=== PATIENT | female | born 1970 | race Caucasian/White ===

== ENCOUNTER 2016-12-20 07:43 | Day surgery (SDC) | payer OTHER ==
[~2016-12-20] VITALS: Ht 149.9 cm; Wt 115.5 kg
[~2016-12-20 07:43] MED LIST: CITA10SO PO; LEVO125T3 PO; METO25 PO; PANT20 PO; PLAV75TA PO; QUIN10TA15 PO; [UNRECOGNIZED DRUG - OTHER] PO
[2016-12-20] MEDS ORDERED: IOHEXOL 350 MG/ML 100 ML BTL (for Cath Lab) OTHER ONE (07:44)
[2016-12-20] MEDS ORDERED: IOHEXOL 350 MG/ML 50 ML BTL (for Cath Lab) OTHER ONE (07:44)
[2016-12-20] MEDS ORDERED: NS 1000P @30 MLS/HR (KVO) IV SCH (08:15)
[2016-12-20 09:35] VITALS: BP 138/81; PULSE 72; RESP 20; TEMP 98.5; O2SAT 98
[2016-12-20] MEDS ORDERED: METO25TA3 PO (09:39)
[2016-12-20] MEDS ORDERED: PANT40TA3 PO (09:39)
[2016-12-20] MEDS ORDERED: QUIN20TA33 PO (09:39)
[2016-12-20] MEDS ORDERED: EZET1TAB8 PO (09:39)
[2016-12-20] MEDS ORDERED: BUSP1TAB PO (09:39)
[2016-12-20] MEDS ORDERED: ALLE10TA PO (09:39)
[2016-12-20] MEDS ORDERED: NITR0.4S SL (09:39)
[2016-12-20] MEDS ORDERED: CLOP75TA PO (09:39)
[2016-12-20] MEDS ORDERED: LEVO125T4 PO (09:39)
[2016-12-20] MEDS ORDERED: HYDR1CRE TOPICAL (09:39)
[2016-12-20] MEDS ORDERED: NORE5TAB PO (09:39)
[2016-12-20] MEDS ORDERED: HYDROCORTISONE SOD SUCCINATE 100 MG VIAL ONE (14:17)
[2016-12-20] MEDS ORDERED: diphenhydrAMINE HCL 50 MG/ML VIAL ONE (14:17)
[2016-12-20] MEDS ORDERED: diphenhydrAMINE HCL 50 MG/ML VIAL IV PUSH ONE (14:45)
[2016-12-20] MEDS ORDERED: HYDROCORTISONE SOD SUCCINATE 100 MG VIAL IV ONE (14:45)
[2016-12-20] MEDS ORDERED: HEPARIN-NS/PF INJ 1,000 ML ONE (15:05)
[2016-12-20] MEDS ORDERED: MIDAZOLAM HCL 2 MG/2 ML VIAL ONE ×2 (15:11→15:50)
[2016-12-20] MEDS ORDERED: HEPARIN SODIUM - IV 10,000 UNITS/10 ML VIAL ONE (15:17)
[2016-12-20] MEDS ORDERED: BIVALIRUDIN 250 MG VIAL ONE ×2 (15:30→15:57)
[2016-12-20] MEDS ORDERED: STERILE WATER FOR INJECTION 10 ML VIAL ONE (15:30)
[2016-12-20] MEDS ORDERED: CLOPIDOGREL 300 MG TAB ONE (16:04)
[2016-12-20] MEDS ORDERED: BIVALIRUDIN INJ 250 MG in SODIUM CHLORIDE 0.9% INJ 50 ML IV SCH (16:07)
[2016-12-20] MEDS ORDERED: NITROGLYCERIN 400 MCG/SPRAY 4.9 GM BOTTLE SL ONE (16:07)
[2016-12-20] MEDS ORDERED: ASPI81TA11 PO (16:13)
[2016-12-20] MEDS ORDERED: LIDOCAINE 2% JELLY 30 ML TUBE TOP PRN (16:15)
[2016-12-20] MEDS ORDERED: MISC INFORMATION XX ONE (16:15)
[2016-12-20] MEDS ORDERED: ONDANSETRON HCL 4 MG/2 ML VIAL IVP PRN (16:15)
[2016-12-20] MEDS ORDERED: MORPHINE SULFATE 4 MG/ML INJ IV PUSH PRN (16:15)
[2016-12-20] MEDS ORDERED: BACITRACIN OINT 0.9 GM PKT TOP ONE (16:15)
[2016-12-20] MEDS ORDERED: TEMAZEPAM 15 MG CAP PO PRN (16:15)
[2016-12-20] MEDS ORDERED: oxyCODONE/ACETAMINOPHEN 10 MG/325 MG TAB PO PRN (16:15)
[2016-12-20] MEDS ORDERED: oxyCODONE/ACETAMINOPHEN 5 MG/325 MG TAB PO PRN (16:15)
[2016-12-20] MEDS ORDERED: ACETAMINOPHEN 325 MG TAB PO PRN (16:15)
--- NOTE | 2016-12-20 16:16 | CATHPROC ---
Patient Name: NERISSA JORDAN Study #: [id number] Initial MD: Fitz Zavala Date of : 1970 Study Date: 12/20/2016 Cardiac Catheterization Report 12/20/2016 4:15:55 PM Financial #: [id number] 1 of 13 Patient Name: NERISSA JORDAN Study #: [id number] Initial MD: Fitz Zavala Date of : 1970 Study Date: 12/20/2016 Entire Case Report Patient Information Patient Name NERISSA JORDAN Date of 1970 Age 46 years Financial # [id number] Gender F AlternateID Lab Number 4 Room Number DC08 Height (in) 59.0 Height (cm) 149.9 BSA 2.03 Weight (lbs) 250.8 Weight (kg) 114.0 Patient Address/Phone Number Home Address [facility] Home Phone Number [address] [facility] [id number] Study Information Study Number Admission Scheduled Start Study Start [id number] Dec 20 2016 7:43AM 12/20/2016 Dec 20 2016 3:00PM [place] Service Cardiac Catheterization Admit Source Facility Department Other [facility] [employer] Physician and Clinical Staff Initial Fitz Sheth Weight Loss Counselor Maicol Ley,YARY Recorder Melecio Parker Recorder Charbel Vasquez,(R) Scrub Marcello Walker RCIS(BS) Procedures Performed Procedure Location (Site) Vessel Name Coronary Angiograms LCA Left Coronary Coronary Angiograms RCA Right Coronary Drug Eluting Inflatio RCA Mid Right Coronary Drug Eluting Inflatio RCA Prox Right Coronary L Heart Cath PTCA RCA Mid Right Coronary PTCA RCA Prox Right Coronary Wire insertion Radial (right) Radial Art. 12/20/2016 4:15:55 PM Financial #: [id number] 2 of 13 Patient Name: NERISSA JORDAN Study #: [id number] Initial MD: Fitz Zavala Date of : 1970 Study Date: 12/20/2016 Equipment Time Free Lance Model Description Size Mfg Part Number Used/Scraped TRANSDUCER, TRUWAVE [id number] 15:13 SHOOK MAYS * Used W/STOCKCOCK *[id number] 15:38 BOSTON [employer] BALLOON, 2.5 20MM EMERGE MR 2.5 20MM Used *[id number] 534-618T *0381923 [phone] *[id number] 534-623T *1007221 [id number] 15:13 MEDLINE INDUSTRIES PACK, CCL CUSTOM * Used *[id number] 15:13 [employer] INDUSTRIES SUPPORT, ARTERIAL ADULT 32716 *4499248 Used [id number] 15:13 MEDLINE PACER PEN, SKIN DUAL W/ RULER * Used *[id number] STENT, 2.5 30 RESOLUTE [id number] 15:49 MEDTRONIC 2.5 30 Used INTEGRITY RX *[id number] STENT, 3.0 18 RESOLUTE [id number] 15:56 MEDTRONIC 3.0 18 Used INTEGRITY RX *[id number] STENT, 3.0 38 RESOLUTE [id number] 16:00 MEDTRONIC 3.0 38 Used INTEGRITY RX *[id number] 15:47 [employer] MEDICAL 30 KALPESH INDEFLATOR Used *0194517 BAND, RADIAL COMPRESSION TR [id number] 16:11 [employer] MEDICAL 24CM Used SHORT 24 *[id number] SHEATH, FR6 RADIAL PRELUDE 15:13 [employer] FR 6 [id number] Used EASE 11CM [id number] 15:13 [employer] WIRE, EXCHANGE 260CM 3MMJ 260CM Used *1502526 15:13 NYCOMED OMNIPAQUE, 350 MG, 150ML 150ML [id number] Used [id number] 15:13 ABDALLA MEDICAL BLANKET,WARM AIR CCL * Used *1288727 WIRE, RUNTHROUGH NS FLOPPY 25-1013 15:34 TERUMO MEDICAL 300CM Used .014 300CM *[id number] Equipment Model, Serial, Lot Number and Expiration Data Description Model Number Serial Number Lot Number Expiration Date STENT, 2.5 30 RESOLUTE [id number] 02-26-2018 INTEGRITY RX STENT, 3.0 18 RESOLUTE [id number] 07-28-2018 INTEGRITY RX STENT, 3.0 38 RESOLUTE [id number] 10-05-2017 INTEGRITY RX Insurance Information Insurance Payor [facility] Insurance Third Alliance Party Third Alliance Party Number [facility]LY [facility] 12/20/2016 4:15:55 PM Financial #: [id number] 3 of 13 Patient Name: NERISSA JORDAN Study #: [id number] Initial MD: Fitz Zavala Date of : 1970 Study Date: 12/20/2016 History: Current Medications Medication Dosage/Unit Route Frequency Last Date/Time Taken PLAVIX Synthroid LOPRESSOR NTG SL Zieta History: Allergies Allergy Reaction prednisone latex Iodinated Contrast- Oral and IV Dye Wxsusfz-Cfl-Yrc Reductase Inhibitor shellfish derived History: Risk Factors Family History of Hypertension Dyslipidemia Previous CT Previous Heart Failure Premature CAD Yes Yes No No No Prior Valve Prior PCI Prior CABG Surgery No No No Cerebrovascular Peripheral Artery Chronic Lung On Dialysis Diabetes Disease Disease Disease No No Yes No No History: Symptoms/Diagnosis Selection Items Chest pain History: Stress Tests Stress or Imaging Studies Performed No History: Other Disease Selection Items CAD Gerd HTN History: Other Current Smoker Method Quit Packs a Day Years Used Pack Years No Cigarettes 25 Years Ago 1 5 5 12/20/2016 4:15:55 PM Financial #: [id number] 4 of 13 Patient Name: NERISSA JORDAN Study #: [id number] Initial MD: Fitz Zavala Date of : 1970 Study Date: 7 Labs Hgb (g/dl) Hct (%) RBC (MIL/MM3) WBC (l/cumm) Platelets (thousands) 11.60-17.00 35.00-51.00 4.00-5.90 4.00-11.00 150.00-450.00 16.4 48.9 5.4 9.2 296 Glucose (mg/dl) BUN (mg/dl) Creatinine (mg/dl) BUN:Creatinine (1:x) 74.00-106.00 7.00-18.00 0.50-1.30 10.00-20.00 71 16 0.8 20 Na (meq/l) K (meq/l) Cl (meq/l) CO2 (mmol/L) Ca (mg/dl) 136.00-145.00 3.50-5.10 98.00-107.00 21.00-32.00 8.50-10.10 140 4.4 104 19 8.7 PT (sec) INR (PTT:PT) 9.80-11.60 0.90-1.10 9.6 0.9 CPK-MB (ng/ML) 0.50-3.60 Not Drawn Medication Medication Total Dose (Bolus/Oral) Medication Total Dosage/Unit 1% XYLOCAINE 5 mL ANGIOMAX BOLUS 17 mL NTG (IC) 200 mcg VERSED 1 mg Medications (Bolus/Oral) Medication Time Given Dosage/Unit Administered By Reason VERSED 12/20/2016 3:20:07 PM 1 mg Maicol Ley Patient arrived on 1 mg VERSED given by Maicol Ley RN in Left Antecubital via Peripheral IV. 1% XYLOCAINE 12/20/2016 3:20:19 PM 5 mL Fitz Zavala Patient arrived on 5 mL 1% XYLOCAINE given by Fitz Zavala in Right Wrist via Subcutaneous. NTG (IC) 12/20/2016 3:21:22 PM 200 mcg Fitz Zavala Patient arrived on 200 mcg NTG (IC) given by Fitz Zavala in Right Wrist via Radial. ANGIOMAX BOLUS 12/20/2016 3:34:46 PM 17 mL Maicol Ley 17 mL ANGIOMAX BOLUS given in lab by Maicol Ley RN in Left Antecubital via Peripheral IV. 12/20/2016 4:15:55 PM Financial #: [id number] 5 of 13 Patient Name: NERISSA JORDAN Study #: [id number] Initial MD: Fitz Zavala Date of : 1970 Study Date: 017 Medication (Drip) Medication Time Given Dosage/Unit Concentration/Unit Diluent (ml) Solutio n IV Solutions 12/20/2016 3:03:35 PM 50 mL (IV) 500 NaCl .9 Patient arrived on IV Solutions in Left Antecubital via Peripheral IV. Pump/Drip Flow using NaCl .9. 12/20/2016 4:15:55 PM Financial #: [id number] 6 of 13 Patient Name: NERISSA JORDAN Study #: [id number] Initial MD: Fitz Zavala Date of : 1970 Study Date: 12/20/2016 Initial Case Assessment Cardiovascular HR Rhythm NIBP Chest Pain 93 SR 151/89 0 Edema Present Skin color Skin None Normal Warm Dry Circulatory - Right Pulses Dorsalis Pedis Femoral Radial 2 2 2 Scale (0,1,2,3,4,d) Scale (0,1,2,3,4,d) Neurological State Oriented to time-place- Alert Moves all extremities person Respiration - General Respiration Rate SpO2 (%) O2 (lpm) (B/min) 24 99 0 Final Case Assessment Cardiovascular HR Rhythm NIBP Chest Pain 80 SR 143/81 5 Edema Present Skin color Skin None Normal Warm Dry Circulatory - Right Pulses Dorsalis Pedis Femoral Radial 2 2 2 Scale (0,1,2,3,4,d) Scale (0,1,2,3,4,d) Neurological State Oriented to time-place- Alert Moves all extremities person Respiration - General Respiration Rate SpO2 (%) O2 (lpm) (B/min) 29 96 0 12/20/2016 4:15:55 PM Financial #: [id number] Patient Name: NERISSA JORDAN Study #: [id number] Initial MD: Fitz Zavala Date of : 1970 Study Date: 12/20/2016 Vitals Summary Pain Time HR NIBP SpO2 Resp Temp EtCO2 Apnea Marissa Flores Comment Level 15:11:10 93 151/89 98.0 30 10 0 2 15:13:09 99 153/86 100.0 32 10 0 2 15:15:12 92 149/78 98.0 30 10 0 2 15:17:11 84 150/82 95.0 30 10 0 2 15:19:11 93 153/82 95.0 32 10 0 2 15:21:12 93 150/85 95.0 31 10 0 2 15:23:11 102 144/90 92.0 32 10 0 2 15:25:10 100 127/79 92.0 21 10 0 2 15:27:09 98 131/74 90.0 23 10 0 2 15:29:09 98 139/71 92.0 33 10 0 2 15:31:10 96 130/75 92.0 28 10 0 2 15:33:09 104 132/78 91.0 28 10 0 2 15:34:10 92 164/80 96.0 29 10 0 2 15:39:12 88 145/79 94.0 26 10 0 2 15:44:09 89 140/86 95.0 26 10 0 2 15:49:46 86 162/88 96.0 31 10 0 2 15:54:15 72 159/87 93.0 31 10 0 2 15:59:14 88 153/88 93.0 32 10 0 2 16:04:15 86 143/81 96.0 30 10 0 2 16:09:10 83 134/68 95.0 31 10 0 2 12/20/2016 4:15:55 PM Financial #: [id number] Patient Name: NERISSA JORDAN Study #: [id number] Initial MD: Fitz Zavala Date of : 1970 Study Date: 12/20/2016 Marissa Score Summary Time Activity Resp Circ LOC Color Total Score 15:11:10 2 2 2 2 2 10 15:13:09 2 2 2 2 2 10 15:15:12 2 2 2 2 2 10 15:17:11 2 2 2 2 2 10 15:19:11 2 2 2 2 2 10 15:21:12 2 2 2 2 2 10 15:23:11 2 2 2 2 2 10 15:25:10 2 2 2 2 2 10 15:27:09 2 2 2 2 2 10 15:29:09 2 2 2 2 2 10 15:31:10 2 2 2 2 2 10 15:33:09 2 2 2 2 2 10 15:34:10 2 2 2 2 2 10 15:39:12 2 2 2 2 2 10 15:44:09 2 2 2 2 2 10 15:49:46 2 2 2 2 2 10 15:54:15 2 2 2 2 2 10 15:59:14 2 2 2 2 2 10 16:04:15 2 2 2 2 2 10 16:09:10 2 2 2 2 2 10 Marissa Score Definition Table Activity - 0 Activity - 1 Activity - 2 No Movement to Command Weak Hand Grasp Lift Head, Good Hand Grasp Respiration - 0 Respiration - 1 Respiration - 2 Apneic or Obstructed Shallow Breath, Airway Adjunct Deep Breath, Cough Freely Circulation - 0 Circulation - 1 Circulation - 2 B/P > 50% Admission B/P B/P > 20-50% Admission B/P B/P Stable X3 Level of Consciousness - 0 Level of Consciousness - 1 Level of Consciousness - 2 Not Responding Arousable On Calling Awake and Aware Color - 0 Color- 1 Color - 2 Cyanotic Lips, Nailbed, Skin Pale, Dusky [place] Or Normal Chronological Log Time Study Chronological Log 14:59:54 Patient arrived via Bed. 12/20/2016 4:15:55 PM Financial #: [id number] Patient Name: NERISSA JORDAN Study #: [id number] Initial MD: Fitz Zavala Date of : 1970 Study Date: 12/20/2016 14:59:56 Patient Name, D.O.B, / Armband Verified By R.N. 15:01:04 Pre-op and post- op instructions given; patient acknowledges understanding of instructions. 15:01:26 Allens test performed on the right radial and ulnar artery. 15:02:10 Presedation assessment performed by Concrete [employer]sman RN. 15:02:22 Patient has been NPO for More than 6Hrs. 15:02:26 Skin Breakdown- NONE 15:02:32 Patient Warmer Placed on the Table. 15:02:33 Flores Prominences Protected 15:02:35 A # 20 IV was noted in the Antecubital (left). Grade = PATENT 15:03:35 Patient arrived on IV Solutions in Left Antecubital via Peripheral IV. Pump/Drip Flow using NaCl .9. 15:07:27 MD arrived. Vitals capture started with the following parameters, Patient=Adult, Interval=5 min, Initial Pr ldivqx=130 mmHg, 15:08:08 Deflation Rate=5 mmHg, Cuff placed on Right Arm Assessment: Initial Case, HR=93 BPM, Rhythm=SR, GIXQ=670/89 mmhg, Chest Pain=0, Edema=None, Col or=Normal, Skin = Warm, Dry 15:08:40 Right Pulses: Jorge Ped=2, Femoral=2, Radial=2 Neurological: State=Alert, Ox3, [place] Respiration: Resp=24 B/min, SpO2=99 %, O2=0 lpm 15:09:08 Reference ECG taken Vitals capture started with the following parameters, Patient=Adult, Interval=5min, Initial Pre zqhjb=350 mmHg, 15:10:33 Deflation Rate=5 mmHg, Cuff placed on Right Arm 15:11:10 HR=93 bpm, WMRQ=743/89 mmhg, SpO2=98.0 %, Resp=30 B/min, Pain=0, Marissa=10, Flores=2 15:13:09 HR=99 bpm, BAWH=425/86 mmhg, ZsE6=164.0 %, Resp=32 B/min, Pain=0, Marissa=10, Flores=2 15:15:12 HR=92 bpm, TJMS=517/78 mmhg, SpO2=98.0 %, Resp=30 B/min, Pain=0, Marissa=10, Flores=2 15:15:55 Pressure channel 1 zeroed. 15:17:11 HR=84 bpm, GAGL=431/82 mmhg, SpO2=95.0 %, Resp=30 B/min, Pain=0, Marissa=10, Flores=2 15:19:11 HR=93 bpm, DLOQ=473/82 mmhg, SpO2=95.0 %, Resp=32 B/min, Pain=0, Marissa=10, Flores=2 Time Out. Correct patient, correct procedure,correct physician, power injector not loaded with contrast with surgical 15:19:11 team present. Time Out Concurred by MD, individual staff in procedure 15:20:05 Case Start 15:20:07 Patient arrived on 1 mg VERSED given by Maicol Ley, RN in Left Antecubital via Periphera l IV. 15:20:19 Patient arrived on 5 mL 1% XYLOCAINE given by Fitz Zavala in Right Wrist via Subcutaneou s. 15:20:42 Access site was Radial Artery. A SHEATH, FR6 RADIAL PRELUDE EASE 11CM FR 6 was advanced into the Radial (right) using the Perc utaneous 15:21:00 technique. 15:21:12 HR=93 bpm, ACQX=828/85 mmhg, SpO2=95.0 %, Resp=31 B/min, Pain=0, Marissa=10, Flores=2 15:21:22 Patient arrived on 200 mcg NTG (IC) given by Fitz Zavala in Right Wrist via Radial. A JR 5.0 INFINITI CATHETER FR 6 was advanced over a wire. OMNIPAQUE, 350 MG, 150ML 150ML was us ed for 15:23:11 injections. 15:23:11 VR=703 bpm, KLAO=994/90 mmhg, SpO2=92.0 %, Resp=32 B/min, Pain=0, Marissa=10, Flores=2 Recorded Pressure: LV, HR=98, Condition=Condition 1 15:24:33 (Left Ventricle) LV 147/-1/3 12/20/2016 4:15:55 PM Financial #: [id number] Patient Name: NERISSA JORDAN Study #: [id number] Initial MD: Fitz Zavala Date of : 1970 Study Date: 12/20/2016 Recorded Pressure: LV, Ao, II=198, Condition=Condition 1 15:24:39 (Left Ventricle) LV 148/-1/2, (Aorta) Ao 144/89/113 Recorded Pressure: Ao, HR=95, Condition=Condition 1 15:25:06 (Aorta) Ao 137/92/112 15:25:10 HK=914 bpm, HUMG=960/79 mmhg, SpO2=92.0 %, Resp=21 B/min, Pain=0, Marissa=10, Flores=2 15:25:20 The RCA was injected and visualized at various angles. OMNIPAQUE, 350 MG, 150ML 150ML used . After removing the current catheter a JL 3.5 INFINITI CATHETER FR 6 was advanced over a WIRE, E XCHANGE 260CM 15:25:39 3MMJ 260CM. 15:27:09 HR=98 bpm, NJDM=945/74 mmhg, SpO2=90.0 %, Resp=23 B/min, Pain=0, Marissa=10, Flores=2 15:29:05 The LCA was injected and visualized at various angles. OMNIPAQUE, 350 MG, 150ML 150ML used . 15:29:09 HR=98 bpm, YHOM=231/71 mmhg, SpO2=92.0 %, Resp=33 B/min, Pain=0, Marissa=10, Flores=2 15:31:10 HR=96 bpm, ZXKS=787/75 mmhg, SpO2=92.0 %, Resp=28 B/min, Pain=0, Marissa=10, Flores=2 After removing the current catheter a JR 5.0 GUIDE CATHETER FR 6 was advanced over a WIRE, EXCH SAILAJA 260CM 15:32:27 3MMJ 260CM. 15:33:09 SS=661 bpm, BCND=294/78 mmhg, SpO2=91.0 %, Resp=28 B/min, Pain=0, Marissa=10, Flores=2 15:33:23 Vitals capture stopped. Vitals capture started with the following parameters, Patient=Adult, Interval=5 min, Initial Pr plmder=293 mmHg, 15:33:32 Deflation Rate=5 mmHg, Cuff placed on Right Arm 15:34:10 HR=92 bpm, JFJK=481/80 mmhg, SpO2=96.0 %, Resp=29 B/min, Pain=0, Marissa=10, Flores=2 15:34:15 A WIRE, RUNTHROUGH NS FLOPPY .014 300CM 300CM was inserted via Radial (right). 15:34:46 17 mL ANGIOMAX BOLUS given in lab by Maicol Ley, RN in Left Antecubital via Peripheral I V. 15:39:12 HR=88 bpm, LZCA=809/79 mmhg, SpO2=94.0 %, Resp=26 B/min, Pain=0, Marissa=10, Flores=2 15:44:09 HR=89 bpm, OHDB=285/86 mmhg, SpO2=95.0 %, Resp=26 B/min, Pain=0, Marissa=10, Flores=2 15:44:25 Interventional wire has crossed the lesion A BALLOON, 2.5 20MM EMERGE MR 2.5 20MM was inserted over WIRE, RUNTHROUGH NS FLOPPY .014 300CM 300CM 15:45:43 via the RCA Mid. A BALLOON, 2.5 20MM EMERGE MR 2.5 20MM over a WIRE, RUNTHROUGH NS FLOPPY .014 300CM 300CM in th e RCA 15:46:27 Mid was inflated using a 30 KALPESH INDEFLATOR at 10 kalpesh for 15 sec. A BALLOON, 2.5 20MM EMERGE MR 2.5 20MM over a WIRE, RUNTHROUGH NS FLOPPY .014 300CM 300CM in th e RCA 15:46:54 Prox was inflated using a 30 KALPESH INDEFLATOR at 10 kalpesh for 15 sec. A BALLOON, 2.5 20MM EMERGE MR 2.5 20MM over a WIRE, RUNTHROUGH NS FLOPPY .014 300CM 300CM in th e RCA 15:47:13 Prox was inflated using a 30 KALPESH INDEFLATOR at 6 kalpesh for 10 sec. 15:48:46 Balloon Removed. 15:49:46 HR=86 bpm, WUUZ=279/88 mmhg, SpO2=96.0 %, Resp=31 B/min, Pain=0, Marissa=10, Flores=2 A STENT, 2.5 30 RESOLUTE INTEGRITY RX 2.5 30 was deployed using a 30 KALPESH INDEFLATOR at 16 atmos pheres for 15:49:56 10 seconds in the RCA Mid. A STENT, 2.5 30 RESOLUTE INTEGRITY RX 2.5 30 was advanced through a JR 5.0 GUIDE CATHETER FR 6 over a WIRE, 15:49:58 RUNTHROUGH NS FLOPPY .014 300CM 300CM. 15:50:47 Delivery device removed A STENT, 3.0 38 RESOLUTE INTEGRITY RX 3.0 38 was advanced through a JR 5.0 GUIDE CATHETER FR 6 over a WIRE, 15:52:03 RUNTHROUGH NS FLOPPY .014 300CM 300CM. A STENT, 3.0 38 RESOLUTE INTEGRITY RX 3.0 38 was deployed using a 30 KALPESH INDEFLATOR at 16 atmos pheres for 15:52:58 10 seconds in the RCA Prox. 15:53:37 Delivery device removed 15:54:15 HR=72 bpm, AIEG=222/87 mmhg, SpO2=93.0 %, Resp=31 B/min, Pain=0, Marissa=10, Flores=2 12/20/2016 4:15:55 PM Financial #: [id number] Patient Name: NERISSA JORDAN Study #: [id number] Initial MD: Fitz Zavala Date of : 1970 Study Date: 12/20/2016 A STENT, 3.0 18 RESOLUTE INTEGRITY RX 3.0 18 was advanced through a JR 5.0 GUIDE CATHETER FR 6 over a WIRE, 15:55:43 RUNTHROUGH NS FLOPPY .014 300CM 300CM. A STENT, 3.0 18 RESOLUTE INTEGRITY RX 3.0 18 was deployed using a 30 KALPESH INDEFLATOR at 16 atmos pheres for 15:58:11 10 seconds in the RCA Prox. 15:58:28 Delivery device removed 15:59:14 HR=88 bpm, ESVF=477/88 mmhg, SpO2=93.0 %, Resp=32 B/min, Pain=0, Marissa=10, Flores=2 16:01:04 The RCA was injected and visualized at various angles. OMNIPAQUE, 350 MG, 150ML 150ML used . 16:01:18 Wire removed 16:01:26 A WIRE, EXCHANGE 260CM 3MMJ 260CM was inserted via Radial (right). 16:01:38 Catheter was removed 16:01:40 Wire removed 16:01:46 Case End 16:03:49 No case complications noted. 16:03:54 Cine recording checked. Assessment: Final Case, HR=80 BPM, Rhythm=SR, EICU=886/81 mmhg, Chest Pain=5, Edema=None, Color =Normal, Skin = Warm, Dry 16:04:02 Right Pulses: Jorge Ped=2, Femoral=2, Radial=2 Neurological: State=Alert, Ox3, [place] Respiration: Resp=29 B/min, SpO2=96 %, O2=0 lpm 16:04:15 HR=86 bpm, OZGO=945/81 mmhg, SpO2=96.0 %, Resp=30 B/min, Pain=0, Marissa=10, Flores=2 Radial Compression Device Used. 16 mLs of air placed in BAND, RADIAL COMPRESSION TR SHORT 24 24 CM. Affected 16:05:16 hand 94 % O2 saturation. 16:08:39 Sterile dressing applied to site 16:08:49 Holding Area notified of successful intervention. 16:09:10 HR=83 bpm, NDKE=792/68 mmhg, SpO2=95.0 %, Resp=31 B/min, Pain=0, Marissa=10, Flores=2 16:09:18 Report called to floor. 16:10:00 A Left Heart Cath was performed. 16:11:41 Vitals capture stopped. 16:15:17 Patient moved to stretcher Recorded Pressures: Condition 1 Time Chamber Pressure Manual Override (*) 15:24:33 LV 147/-1/3 s/bd/ed 15:24:39 LV 148/-1/2 s/bd/ed 15:24:39 Ao 144/89/113 s/d/m 15:25:06 Ao 137/92/112 s/d/m 12/20/2016 4:15:55 PM Financial #: [id number] Patient Name: NERISSA JORDAN Study #: [id number] Initial MD: Fitz Zavala Date of : 1970 Study Date: 12/20/2016 End Study - Contrast Media Used In Study Contrast Total Opened (mL) Total Used (mL) Total Wasted (mL) Omnipaque 150 120 30 End Study - Maximum Contrast Load Max Contrast Load (mL) 712.5 End Study - Radiation Exposure Fluoro Time (minutes) 12.4 End Study - Patient Disposition Complications Transferred To Interventional Outcome No Telemetry Bed successful 12/20/2016 4:15:55 PM Financial #: [id number]
[2016-12-20] MEDS ORDERED: BRIL90TA PO (16:24)
[2016-12-20] MEDS ORDERED: ASPIRIN 81 MG CHEW TAB ONE (16:31)
[2016-12-20] MEDS ORDERED: ASPIRIN 81 MG CHEW TAB PO ONE (16:45)
[2016-12-20] MEDS ORDERED: PILL SPLITTER OTHER PRN (18:30)
[2016-12-20 19:00] VITALS: PULSE 100
[2016-12-20 20:00] VITALS: BP 154/89; PULSE 101; PULSE 102; RESP 16; TEMP 98.8; O2SAT 95
[2016-12-20] MEDS: busPIRone HCL 5 MG TAB PO SCH (20:16)
[2016-12-20] MEDS: METOPROLOL TARTRATE 25 MG TAB PO SCH (20:17)
[2016-12-20] MEDS: HYDROCORTISONE 1% CREAM 30 GM TOPICAL SCH (20:17)
[2016-12-20] MEDS: LISINOPRIL 20 MG TAB PO SCH (20:17)
[2016-12-20] MEDS: TICAGRELOR 90 MG TAB PO SCH (20:18)
--- NOTE | 2016-12-20 20:34 | MA ---
cc: CAMILLE BARAKAT DATE 12/20/2016 INDICATION Unstable angina. PROCEDURES PERFORMED 1. Fluoroscopy with interpretation. 2. Left heart catheterization. 3. Coronary angiography. 4. Percutaneous intervention with drug-eluting stents to the right coronary artery. METHOD Risks, benefits and alternatives were discussed with the patient. The patient understood and consented to the procedure. PROCEDURE DETAILS The patient was brought to the catheterization lab and placed on the catheterization table. Right wrist was prepped and draped in sterile fashion. Right wrist was anesthetized with 2% lidocaine. Right radial artery was cannulated and a 6-Moldovan 7 cm sheath was placed without difficulty. INTRAVENTRICULAR HEMODYNAMICS Left ventricular hemodynamics 148/1 mmHg. CORONARY ANGIOGRAPHY 1. Left main coronary has minor luminal irregularities. 2. Left anterior descending coronary has mild luminal irregularities. 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 The midsegment has what looks like two stents. In between the two stents there is 30% stenosis. Remainder of the left anterior descending coronary has mild luminal irregularities. 3. Circumflex gives rise to an obtuse marginal branch. Circumflex has 30% stenosis. 4. The right coronary is a dominant vessel giving rise to posterior descending branch. The mid-right coronary has an 80% stenosis. The distal segment has a 99% stenosis rise to a moderate size posterolateral and posterior descending branches. PERCUTANEOUS INTERVENTION Angiomax was administered throughout the entire procedure to maintain appropriate anticoagulation. The right coronary was selectively engaged with a 6-Moldovan JR-5 guide catheter. A 0.014 inch 180 cm Terumo run-through wire was navigated down the distal posterior descending branch without difficulty. 2.5 x 20 mm RX Euphora balloon was advanced down to the distal right coronary artery and deployed, had a single inflation to 12 atmospheres. The same balloon was pulled back to the mid segment and deployed to 12 atmospheres. Repeat angiography now showed still FEDERICO III flow, but there was a clear dissection, non-flow dissection flap leading from the midsegment all the way back to the proximal right coronary artery. A 2.5 x 30 mm RX Resolute drug-eluting stent was advanced down to the distal right coronary artery and deployed. A 3.0 x 38 mm RX Resolute drug-eluting stent was then advanced down to the mid-right coronary artery and deployed, and a 3.0 x 18 mm RX Resolute drug-eluting stent was advanced to the proximal right coronary artery and deployed covering the entire area dissection appropriately. There was no evidence of perforation. Repeat angiography showed FEDERICO III flow. No residual dissection. The patient tolerated the procedure well with out any periprocedural complications. removed. guide catheter removed. Hemoband applied. CONCLUSION 1. Severe right coronary artery disease. 2. Successful percutaneous intervention with drug-eluting stents to the right coronary artery. 3. Normal left-sided filling pressures. PLAN The patient will be monitored closely for any post procedural complications including arrhythmia and/or bleeding. She will be continued on Plavix, beta sheyla. She has an allergy to statins. We will initiate aspirin 81 mg a day. Anticipate possible discharge tomorrow. MD BERNADINE Valenzuela/KK /4:14 PM /8:19 PM
[2016-12-20 21:00] VITALS: PULSE 94
[2016-12-20 22:00] VITALS: PULSE 92
[2016-12-20 23:00] VITALS: BP 117/63; PULSE 76; PULSE 81; RESP 16; TEMP 98.2; O2SAT 96
[2016-12-21] VITALS (12 sets, daily range): BP systolic 110–114; BP diastolic 60–72; PULSE 54–88; RESP 16; TEMP 97.6–98.5; O2SAT 96–97
[2016-12-21] MEDS ORDERED: LEVOTHYROXINE SODIUM 125 MCG TAB PO SCH (06:00)
[2016-12-21 07:06] LABS: AUTOMATED NEUTROPHIL # 8.9 TH/MM3 (1.8-7.7); BASOPHIL # 0.1 TH/MM3 (0-0.2); BASOPHIL % 0.4 % (0.0-2.0); EOSINOPHIL # 0.1 TH/MM3 (0-0.4); EOSINOPHIL % 0.4 % (0.0-4.0); HEMATOCRIT 46.9 % (35.0-46.0); HEMO FLAGS DIFF FINAL; LYMPH % 20.8 % (9.0-44.0); LYMPHOCYTE # 2.7 TH/MM3 (1.0-4.8); MEAN CELL VOLUME 90.2 FL (80.0-100.0); MEAN CORPUSCULAR HEMOGLOBIN 29.7 PG (27.0-34.0); MEAN CORPUSCULAR HGB CONC 32.9 % (32.0-36.0); MONO % 9.6 % (0.0-8.0); NEUT % 68.8 % (16.0-70.0); PLATELET COUNT 271 TH/MM3 (150-450); RED CELL DISTRIBUTION WIDTH 13.8 % (11.6-17.2)
[2016-12-21 08:08] LABS: BICARBONATE 19.2 MEQ/L (21.0-32.0)
[2016-12-21 08:12] LABS: HDL CHOLESTEROL 32.4 MG/DL (40.0-60.0); POTASSIUM 3.8 MEQ/L (3.5-5.1)
--- NOTE | 2016-12-21 08:12 | PD.CARD.PN ---
Subjective Subjective Remarks denies chest pain Objective Vital Signs / I&O Vital Signs Date Time Temp Pulse Resp B/P (MAP) Pulse Ox O2 Delivery O2 Flow Rate FiO2 12/21/16 07:56 98.5 77 16 114/72 (86) 96 12/21/16 07:00 71 12/21/16 06:00 59 12/21/16 05:00 56 12/21/16 04:00 59 12/21/16 03:30 97.6 69 16 110/60 (77) 97 12/21/16 03:00 54 12/21/16 02:00 62 12/21/16 01:00 64 12/21/16 00:00 77 12/20/16 23:00 76 12/20/16 23:00 98.2 81 16 117/63 (81) 96 12/20/16 22:00 92 12/20/16 21:00 94 12/20/16 20:00 102 12/20/16 20:00 98.8 101 16 154/89 (110) 95 12/20/16 19:00 100 12/20/16 17:28 94 Room Air 12/20/16 09:35 98.5 72 20 138/81 (100) 98 I/O 12/20/16 12/20/16 12/20/16 12/21/16 12/21/16 12/21/16 07:00 15:00 23:00 07:00 15:00 23:00 Intake Total 240 ml Balance 240 ml Intake Oral 240 ml # Voids 1 # Bowel Movements 0 Physical Exam GENERAL: Well-nourished, well-developed patient in no apparent distress. NECK: No JVD. No carotid bruit. CARDIOVASCULAR: Regular rate and rhythm. S1/S2 no murmur, rub, or gallop. RESPIRATORY: No accessory muscle use. Clear to auscultation. Breath sounds equal bilaterally. GASTROINTESTINAL: Abdomen soft, non-tender, nondistended. MUSCULOSKELETAL: Extremities without clubbing, cyanosis, or edema. r rad pulse 2 + Laboratory Laboratory Tests Test 12/21/16 04:50 White Blood Count 13.0 TH/MM3 Red Blood Count 5.20 MIL/MM3 Hemoglobin 15.4 GM/DL Hematocrit 46.9 % Mean Corpuscular Volume 90.2 FL Mean Corpuscular Hemoglobin 29.7 PG Mean Corpuscular Hemoglobin Concent 32.9 % Red Cell Distribution Width 13.8 % Platelet Count 271 TH/MM3 Mean Platelet Volume 8.3 FL Neutrophils (%) (Auto) 68.8 % Lymphocytes (%) (Auto) 20.8 % Monocytes (%) (Auto) 9.6 % Eosinophils (%) (Auto) 0.4 % Basophils (%) (Auto) 0.4 % Neutrophils # (Auto) 8.9 TH/MM3 Lymphocytes # (Auto) 2.7 TH/MM3 Monocytes # (Auto) 1.2 TH/MM3 Eosinophils # (Auto) 0.1 TH/MM3 Basophils # (Auto) 0.1 TH/MM3 CBC Comment DIFF FINAL Differential Comment Blood Urea Nitrogen 17 MG/DL Creatinine 0.82 MG/DL Random Glucose 63 MG/DL Calcium Level 8.1 MG/DL Carbon Dioxide Level 19.2 MEQ/L Estimat Glomerular Filtration Rate 75 ML/MIN Triglycerides Level 84 MG/DL Cholesterol Level 266 MG/DL Assessment and Plan Problem List: (1) CAD (coronary artery disease) ICD Codes: I25.10 - Atherosclerotic heart disease of [place] coronary artery without angina pectoris Assessment and Plan s/p PCI RCA continue Brilinta and ASA. Also BB, RAZA-I and statin has tolerated. Exercise and heart healthy diet discussed with patient. F/U in our office in one week Rayo Menard Dec 21, 2016 08:12
[2016-12-21] MEDS ORDERED: ASPIRIN EC 81 MG TABEC PO SCH (09:00)
[2016-12-21] MEDS: HYDROCORTISONE 1% CREAM 30 GM TOPICAL SCH (09:00)
[2016-12-21] MEDS ORDERED: PANTOPRAZOLE SOD 40 MG DELAYED RELEASE TAB PO SCH (09:00)
[2016-12-21] MEDS ORDERED: LORATADINE 10 MG TAB PO SCH (09:00)
[2016-12-21] MEDS ORDERED: NORETHINDRONE 5 MG PO SCH ×2 (09:00)
[2016-12-21] MEDS ORDERED: EZETIMIBE 10 MG TAB PO SCH (09:00)
[2016-12-21] MEDS ORDERED: CLOPIDOGREL 75 MG TAB PO SCH (09:00)
[2016-12-21] MEDS: busPIRone HCL 5 MG TAB PO SCH (09:14)
[2016-12-21] MEDS: METOPROLOL TARTRATE 25 MG TAB PO SCH (09:16)
[2016-12-21] MEDS: LISINOPRIL 20 MG TAB PO SCH (09:16)
[2016-12-21] MEDS: TICAGRELOR 90 MG TAB PO SCH (09:17)
--- NOTE | 2016-12-21 11:11 | EKG ---
Date Performed: 12/20/2016 Time Performed: 19:34:16 PTAGE: 46 years EKG: Sinus rhythm Poor R wave progression - probable normal variant Borderline ECG NO PREVIOUS TRACING DOCTOR: Jonathon Jones Interpretating Date/Time 12/21/2016 11:10:44
--- NOTE | 2016-12-21 11:13 | EKG ---
Date Performed: 12/21/2016 Time Performed: 05:26:10 PTAGE: 46 years EKG: Sinus rhythm Normal ECG PREVIOUS TRACING : 12/20/2016 19.34 R-wave progression has improved since the prior tracing. DOCTOR: Jonathon Jones Interpretating Date/Time 12/21/2016 11:11:07
== END 2016-12-21 10:12 | disposition home or self-care (01) ==
LOC: HDOC 07:43 → HDIC 07:44 → HCIN 18:36 → HDOC 12-21 10:12
PROVIDERS: ATTEND Internal Medicine Cardiovascular Disease
DX: I25.110 Atherosclerotic heart disease of native coronary artery with unstable angina pectoris (principal); I10 Essential (primary) hypertension; E78.5 Hyperlipidemia, unspecified; E03.9 Hypothyroidism, unspecified; K21.9 Gastro-esophageal reflux disease without esophagitis; F41.8 Other specified anxiety disorders; E66.01 Morbid (severe) obesity due to excess calories; Z68.43 Body mass index [BMI] 50.0-59.9, adult; Z95.5 Presence of coronary angioplasty implant and graft; Z87.891 Personal history of nicotine dependence; Z79.899 Other long term (current) drug therapy
CPT/HCPCS: 80048; 80061; 82550; 85025; 86850; 86900; 86901; 92928; 93005; 93458; C1725; C1769; C1874; C1887; C1893; J0583; J1644; J2250; J3010; J7030; J1200; J1720; Q9967